=== PATIENT | female | born 1945 | race Caucasian/White ===

== ENCOUNTER 2018-05-12 11:11 | Emergency (ER) | payer OTHER ==
--- NOTE | 2018-05-12 11:39 | ED PDOC ---
Arrival/HPI - General Chief Complaint: Cough, Cold, Congestion Time Seen by Provider: 05/12/18 11:29 Historian: Patient - History of Present Illness Narrative History of Present Illness (Text): 72yo female, with history of diabetes, hypertension, comes to Emergency room with complaints of 1 month of worsening shortness of breath, chest pain, leg swelling and a non-prodcutive cough. Patient describes the chest pain as left sided and "pinching" and is unable to discern worsening or relieving factors. She reports that she recently moved to the [place] and reports that she had a workup in her country for similar symptoms that was normal. Patient reports the coughing is worse at night. Otherwise, denies any fever, chills, nausea, vomiting or abdominal pain. No PMD 05/12/18 15:04 Time/Duration: < month (1) Symptom Onset: Gradual Symptom Course: Worsening Past Medical History - Provider Review Nursing Documentation Reviewed: Yes - Cardiac Hx Cardiac Disorders: No - Pulmonary Hx Respiratory Disorders: No - Neurological Hx Neurological Disorder: No - HEENT Hx HEENT Disorder: No - Renal Hx Renal Disorder: No - Endocrine/Metabolic Hx Endocrine Disorders: Yes Hx Diabetes Mellitus Type 2: Yes - Hematological/Oncological Hx Blood Disorders: No - Integumentary Hx Dermatological Disorder: No - Musculoskeletal/Rheumatological Hx Musculoskeletal Disorders: Yes Hx Back Pain: Yes - Gastrointestinal Hx Gastrointestinal Disorders: No - Genitourinary/Gynecological Hx Genitourinary Disorders: No - Psychiatric Hx Psychophysiologic Disorder: No Hx Substance Use: No - Surgical History Hx Orthopedic Surgery: Yes Family/Social History - Physician Review Nursing Documentation Reviewed: Yes Family/Social History: No Known Family HX Smoking Status: Never Smoked Hx Alcohol Use: No Hx Substance Use: No Allergies/Home Meds Allergies/Adverse Reactions: Allergies No Known Allergies Allergy (Verified 05/12/18 11:19) Home Medications: Home Meds Medication Instructions Recorded Confirmed MetFORMIN [glucoPHAGE] 1,000 mg PO DAILY 05/12/18 05/12/18 Review of Systems - Physician Review All systems were reviewed & negative as marked: Yes - Review of Systems Constitutional: absent: Fatigue, Weight Change, Fevers, Night Sweats Respiratory: SOB, Cough. absent: Sputum Cardiovascular: Chest Pain Gastrointestinal: absent: Abdominal Pain, Constipation, Diarrhea, Nausea, Vomiting Genitourinary Female: absent: Dysuria Musculoskeletal: Other (lower extremity swelling) Physical Exam Vital Signs Temp Pulse Resp BP Pulse Ox 05/12/18 13:30 98.3 F 71 18 145/84 99 05/12/18 11:56 98.2 F 73 18 136/82 99 Temperature: Afebrile Blood Pressure: Normal Pulse: Regular Respiratory Rate: Normal Appearance: Positive for: Non-Toxic, Comfortable, Other (obese) Pain Distress: None Mental Status: Positive for: Alert and Oriented X 3 - Systems Exam Head: Present: Atraumatic, Normocephalic Pupils: Present: PERRL Extroacular Muscles: Present: EOMI Conjunctiva: Present: Normal Mouth: Present: Moist Mucous Membranes Neck: Present: Normal Range of Motion Respiratory/Chest: Present: Clear to Auscultation, Good Air Exchange. No: Respiratory Distress, Accessory Muscle Use Cardiovascular: Present: Regular Rate and Rhythm, Normal S1, S2. No: Murmurs Abdomen: Present: Normal Bowel Sounds. No: Tenderness, Distention, Peritoneal Signs Upper Extremity: Present: Normal Inspection, Normal ROM. No: Cyanosis, Edema Lower Extremity: Present: Edema (non-pitting), NORMAL PULSES. No: CALF TENDERNESS Neurological: Present: GCS=15, CN II-XII Intact, Speech Normal Skin: Present: Warm, Dry, Normal Color. No: Rashes Psychiatric: Present: Alert, Oriented x 3, Normal Insight, Normal Concentration Medical Decision Making ED Course and Treatment: Impression: 72yo female, history of hypertension and diabetes, with complaints of chest pain, shortness of breath, cough and leg swelling. These are chronic complaints with prior negative workup. Plan: -- Labs -- Chest X-Ray -- EKG -- Aspirin 324mg PO -- Reassess and disposition Progress Notes: 05/12/18 12:20 CXR FINDINGS: LUNGS: No active pulmonary disease. PLEURA: No significant pleural effusion identified, no pneumothorax apparent. CARDIOVASCULAR: Cardiomegaly. No evidence of acute, significant cardiovascular disease. OSSEOUS STRUCTURES: No significant abnormalities. VISUALIZED UPPER ABDOMEN: Normal. OTHER FINDINGS: None. IMPRESSION: No active disease. 05/12/18 14:27 CT Chest with contrast FINDINGS: LUNGS: Clear lungs. Visualized airway clear. MEDIASTINUM: Unremarkable thoracic aorta. No aneurysm or dissection. Moderate cardiomegaly The main pulmonary artery trunk is enlarged measuring 43 mm. This is suggestive of pulmonary hypertension. Clinical correlation is suggested. By comparison the ascending aorta is 33 mm diameter. There is no evidence of pulmonary embolus. No lymphadenopathy. PLEURA: No pleural fluid. No pneumothorax. BONES: No fracture. No destructive lesion. UPPER ABDOMEN: Grossly unremarkable. OTHER FINDINGS: None. IMPRESSION: Enlargement of the main pulmonary artery with a diameter 43 mm. Findings consistent with pulmonary hypertension. Clinical correlation is suggested 05/12/18 15:06 EKG shows NSR at 77bpm with normal intervals and no ST changes. Trop x 1 negative. BNP negative. Patient and family made aware of the pulmonary hypertension. They were referred to the [facility]. - Lab Interpretations Lab Results: 05/12/18 12:10 05/12/18 12:10 Lab Results 05/12/18 12:10: Sodium 138, Potassium 4.4, Chloride 104, Carbon Dioxide 29, Anion Gap 10, BUN 14, Creatinine 0.6 L, Est GFR ( Amer) > 60, Est GFR ( Non-Af Amer) > 60, Random Glucose 98, Calcium 9.0, Total Bilirubin 0.5, AST 17, ALT 18, Alkaline Phosphatase 79, Troponin I < 0.01, NT-Pro-B Natriuret Pep 56.2 , Total Protein 7.1, Albumin 4.0, Globulin 3.1, Albumin/Globulin Ratio 1.3 05/12/18 12:10: WBC 5.5, RBC 4.05, Hgb 11.4 L, Hct 35.6 L, MCV 87.9, MCH 28.1, MCHC 32.0, RDW 13.3, Plt Count 280, MPV 8.9, Gran % 52.4, Lymph % (Auto) 39.4 H , [place] % (Auto) 7.1 H, Eos % (Auto) 0.9 L, Baso % (Auto) 0.2, Gran # 2.89, Lymph # (Auto) 2.2, [place] # (Auto) 0.4, Eos # (Auto) 0.1, Baso # (Auto) 0.01 - RAD Interpretation Radiology Orders: 05/12/18 11:29 CHEST PORTABLE [RAD] Stat 05/12/18 13:07 CHEST W/CONTRAST [CT] Stat - Medication Orders Current Medication Orders: Discontinued Medications Aspirin (Aspirin Chewable) 324 mg PO STAT STA Stop: 05/12/18 11:30 Last Admin: 05/12/18 11:40 Dose: 324 mg - Scribe Statement The provider has reviewed the documentation as recorded by the Scribe Provider Attestation: Kaleigh Patel Provider Scribe Attestation: All medical record entries made by the Harisibkendy were at my direction and personally dictated by me. I have reviewed the chart and agree that the record accurately reflects my personal performance of the history, physical exam, medical decision making, and the department course for this patient. I have also personally directed, reviewed, and agree with the discharge instructions and disposition. Disposition/Present on Arrival - Present on Arrival Any Indicators Present on Arrival: No History of DVT/PE: No History of Uncontrolled Diabetes: Yes Urinary Catheter: No History of Decub. Ulcer: No History Surgical Site Infection Following: None - Disposition Have Diagnosis and Disposition been Completed?: Yes Diagnosis: Chronic cough, Pulmonary hypertension, Chronic edema Disposition: HOME/ ROUTINE Disposition Time: 14:38 Patient Plan: Discharge Patient Problems: Current Active Problems Problem Status Onset Chronic cough Acute Pulmonary hypertension Acute Chronic edema Acute Condition: GOOD Discharge Instructions (ExitCare): Pulmonary Hypertension, Adult (DC) Additional Instructions: Follow-up with [facility]. Return to ED if condition worsens. Referrals: Meggan Aguilera MD [Medical Doctor] - Follow up with primary [facility] [Outside] - Follow up with primary Forms: [employer] (Urdu)
[2018-05-12 11:57] VITALS: RESP 18; O2SAT 99
--- NOTE | 2018-05-12 12:22 | RAD ---
Date of service: 05/12/2018 HISTORY: Cough. COMPARISON: No prior. FINDINGS: LUNGS: No active pulmonary disease. PLEURA: No significant pleural effusion identified, no pneumothorax apparent. CARDIOVASCULAR: Cardiomegaly. No evidence of acute, significant cardiovascular disease. OSSEOUS STRUCTURES: No significant abnormalities. VISUALIZED UPPER ABDOMEN: Normal. OTHER FINDINGS: None. IMPRESSION: No active disease.
[2018-05-12 12:28] LABS: BASO # 0.01 K/mm3 (0.0-2.0); BASO % 0.2 % (0.0-3.0); EOS # 0.1 (0.0-0.7); EOS % 0.9 % (1.5-5.0); GRAN # 2.89 (1.4-6.5); GRAN % 52.4 % (50.0-68.0); HEMOGLOBIN 11.4 g/dL (12.0-16.0); LYMPH # 2.2 (1.2-3.4); LYMPH % 39.4 % (22.0-35.0); MEAN CELL VOLUME 87.9 fl (80.0-105.0); MEAN CORPUSCULAR HEMOGLOBIN 28.1 pg (25.0-35.0); MEAN PLATELET VOLUME 8.9 fl (7.0-11.0); MONO # 0.4 (0.1-0.6); MONO % 7.1 % (1.0-6.0); RBC 4.05 10^6/uL (3.5-6.1); RED CELL DISTRIBUTION WIDTH 13.3 % (11.5-14.5); WHITE BLOOD COUNT 5.5 10^3/ul (4.5-11.0)
[2018-05-12 12:35] LABS: ALB/GLOB RATIO 1.3 (1.1-1.8); ALT/SGPT 18 U/L (7-56); AST/SGOT 17 U/L (14-36); BLOOD UREA NITROGEN 14 mg/dL (7-21); GFR NON-AFRICAN AMERICAN > 60
[2018-05-12 12:49] LABS: B-TYPE NATRIURETIC PEPTIDE 56.2 pg/mL (0-450); TROPONIN I < 0.01 ng/mL
[2018-05-12] MEDS ORDERED: Iohexol 350 MG/100 ML VIAL ONE (13:21)
[2018-05-12 13:31] VITALS: BP 145/84; PULSE 71; TEMP 98.3
--- NOTE | 2018-05-12 14:26 | CT ---
Date of service: 05/12/2018 PROCEDURE: CT Chest with contrast HISTORY: persistent cough, sob COMPARISON: None available. TECHNIQUE: Contiguous axial images were obtained through the chest with intravenous contrast enhancement. Sagittal and coronal reconstructions were performed. IV contrast: 100 cc of Omni 350 Radiation dose (DLP): 839 mGy-cm. This CT exam was performed using one or more of the following dose reduction techniques: Automated exposure control, adjustment of the mA and/or kV according to patient size, and/or use of iterative reconstruction technique. FINDINGS: LUNGS: Clear lungs. Visualized airway clear. MEDIASTINUM: Unremarkable thoracic aorta. No aneurysm or dissection. Moderate cardiomegaly The main pulmonary artery trunk is enlarged measuring 43 mm. This is suggestive of pulmonary hypertension. Clinical correlation is suggested. By comparison the ascending aorta is 33 mm diameter. There is no evidence of pulmonary embolus. No lymphadenopathy. PLEURA: No pleural fluid. No pneumothorax. BONES: No fracture. No destructive lesion. UPPER ABDOMEN: Grossly unremarkable. OTHER FINDINGS: None. IMPRESSION: Enlargement of the main pulmonary artery with a diameter 43 mm. Findings consistent with pulmonary hypertension. Clinical correlation is suggested
--- NOTE | 2018-05-12 16:05 | CARD ---
APPROVED REPORT Date of service: 05/12/2018 EKG Measurement Heart [id number] <Conclusion> Normal sinus rhythm Normal ECG
== END 2018-05-12 15:13 | disposition home or self-care (01) ==
LOC: ED 11:11
DX: I27.20 Pulmonary hypertension, unspecified (principal); I10 Essential (primary) hypertension; R05 Cough; R60.9 Edema, unspecified; E11.9 Type 2 diabetes mellitus without complications
CPT/HCPCS: 71045; 71260; 80053; 83880; 84484; 85025; 93005; 99283; Q9967

== ENCOUNTER 2018-12-03 18:04 | Emergency (ER) | payer OTHER ==
[2018-12-03 18:19] VITALS: RESP 18; TEMP 98.1
--- NOTE | 2018-12-03 19:34 | ED PDOC ---
Arrival/HPI - General Chief Complaint: Upper Extremity Problem/Injury Time Seen by Provider: 12/03/18 19:23 - History of Present Illness Narrative History of Present Illness (Text): 73 y/o F c PMHx DM p/w L shoulder pain x 2 weeks. Patient reports bilateral shoulder pain but L much worse than R. Denies trauma, fever, dyspnea, chest pain, vomiting. Past Medical History - Cardiac Hx Cardiac Disorders: No - Pulmonary Hx Respiratory Disorders: No - Neurological Hx Neurological Disorder: No - HEENT Hx HEENT Disorder: No - Renal Hx Renal Disorder: No - Endocrine/Metabolic Hx Endocrine Disorders: Yes Hx Diabetes Mellitus Type 2: Yes - Hematological/Oncological Hx Blood Disorders: No - Integumentary Hx Dermatological Disorder: No - Musculoskeletal/Rheumatological Hx Musculoskeletal Disorders: Yes Hx Back Pain: Yes - Gastrointestinal Hx Gastrointestinal Disorders: No - Genitourinary/Gynecological Hx Genitourinary Disorders: No - Psychiatric Hx Psychophysiologic Disorder: No Hx Substance Use: No - Surgical History Hx Orthopedic Surgery: Yes Family/Social History Family/Social History: No Known Family HX Smoking Status: Never Smoked Hx Alcohol Use: No Hx Substance Use: No Allergies/Home Meds Allergies/Adverse Reactions: Allergies No Known Allergies Allergy (Verified 12/03/18 18:11) Home Medications: Home Meds Medication Instructions Recorded Confirmed MetFORMIN [glucoPHAGE] 1,000 mg PO DAILY 05/12/18 12/03/18 Review of Systems - Physician Review All systems were reviewed & negative as marked: Yes - Review of Systems Constitutional: absent: Fevers Respiratory: absent: SOB Physical Exam - Physical Exam Narrative Physical Exam (Text): Gen: NAD Head: Head covering in place Eyes: No scleral icterus ENT: MMM Neck: No midline tenderness Chest: No deformity CV: Regular rate. Radial pulse 2+ Lungs: CTA b/l Abd: Soft, NT Back: No midline tenderness Skin: No rash Extremities: L shoulder tenderness anteriorly without deformity. Painful ROM above 45 degrees at shoulder Neuro: Alert, no focal deficit Vital Signs Temp Pulse Resp BP Pulse Ox 12/03/18 18:16 98.1 F 77 18 151/70 H 100 Medical Decision Making ED Course and Treatment: Toradol for pain. Shoulder XR shows no fracture or dislocation. Ortho follow up. Return to ED for worsening pain, fever, dyspnea, or any other problem. - RAD Interpretation Radiology Orders: 12/03/18 19:29 SHOULDER LEFT [RAD] Stat - Medication Orders Current Medication Orders: Ketorolac Tromethamine (Toradol) 30 mg IM STAT STA Stop: 12/03/18 19:30 Disposition/Present on Arrival - Present on Arrival Any Indicators Present on Arrival: No History of DVT/PE: No History of Uncontrolled Diabetes: No Urinary Catheter: No History of Decub. Ulcer: No History Surgical Site Infection Following: None - Disposition Have Diagnosis and Disposition been Completed?: Yes Diagnosis: Shoulder pain Disposition: HOME/ ROUTINE Disposition Time: 19:37 Patient Plan: Discharge Condition: GOOD Discharge Instructions (ExitCare): Shoulder Pain (DC) Prescriptions: Famotidine [Pepcid] 1 tab PO BID #14 tab Ibuprofen [Motrin] 600 mg PO Q6 #25 tab Referrals: Bird Zhu III, MD [Medical Doctor] - Follow up with primary
[2018-12-03 20:56] VITALS: BP 140/73; PULSE 76; O2SAT 99
--- NOTE | 2018-12-04 12:29 | RAD ---
Date of service: 12/03/2018 PROCEDURE: Radiographs of the Left Shoulder HISTORY: L shoulder pain COMPARISON: No prior. TECHNIQUE: 3 views obtained. FINDINGS: BONES: Normal. No fracture. JOINTS: Degenerative changes in the acromioclavicular joint and glenohumeral joint. SOFT TISSUES: Normal. OTHER FINDINGS: None. IMPRESSION: Degenerative changes in the acromioclavicular joint and glenohumeral joint.
== END 2018-12-03 20:55 | disposition home or self-care (01) ==
LOC: ED 18:04
DX: M25.512 Pain in left shoulder (principal); E11.9 Type 2 diabetes mellitus without complications
CPT/HCPCS: 73030; 96372; 99283; J1885